=== PATIENT | female | born 1955 | race Caucasian/White ===

== ENCOUNTER 2017-01-12 13:26 | Inpatient (IN) | payer BC ==
[~2017-01-12] VITALS: Ht 157.5 cm; Wt 93.1 kg
[~2017-01-12 13:26] MED LIST: ALENDRONATE SOD70 MG PO; ATARAX,VISTARIL25 MG PO; BENAZEPRIL HCL20 MG PO; BENAZEPRIL HCL40 MG PO; CLOPIDOGREL75 MG PO; EPIPEN ADU0.3 MG/0.3 IM; FOSAMAX70 MG PO; HYDROXYCHLOROQ200 MG PO; LEVETIRACETAM250 MG PO; Lipitor PO; PLAQUENIL200 MG PO; PREDNISONE10 MG PO
[2017-01-12] MEDS ORDERED: VITAMIN D35000 UNIT PO (15:52)
[2017-01-12] MEDS ORDERED: VITAMIN E400 UNIT PO (15:52)
[2017-01-12] MEDS ORDERED: VITAMIN C500 M1 PO (15:52)
[2017-01-12] MEDS ORDERED: DAILY VALUE1 EACH PO (15:53)
[2017-01-12] MEDS ORDERED: GARLIC1000 MG PO (15:53)
[2017-01-12] MEDS ORDERED: OMEGA 3-6-9 CO1 EACH PO (15:54)
[2017-01-12] MEDS ORDERED: TUMS500 MG PO (15:55)
[2017-01-12] MEDS ORDERED: BENADRYL25 MG PO (15:56)
[2017-01-12] MEDS ORDERED: MOTRIN400 MG PO (15:56)
[2017-01-12] MEDS ORDERED: LO-DOSE ASPIRIN81 M2 PO (15:57)
[2017-01-12] MEDS ORDERED: NORVASC5 MG PO (15:57)
[2017-01-12] MEDS ORDERED: FLONASE16 G1 BOTH NARES (15:57)
[2017-01-12 16:53] VITALS: BP 170/80
[2017-01-12 17:33] LABS: TROP-I INTERPRETATION NEGATIVE
[2017-01-12 20:00] VITALS: BP 143/69
[2017-01-12 23:42] VITALS: BP 163/80
[2017-01-12 23:48] LABS: TROP-I INTERPRETATION POSITIVE; TROPONIN-I 0.64 ng/mL (0.0-0.30)
[2017-01-13 00:59] LABS: INTER. NORMALIZED RATIO 1.1; PROTHROMBIN TIME 10.7 (9.2-11.2); PTT 26.8 (25-32)
[2017-01-13 04:06] VITALS: BP 156/71
[2017-01-13 05:27] LABS: TROP-I INTERPRETATION POSITIVE; TROPONIN-I 0.79 ng/mL (0.0-0.30)
[2017-01-13 05:46] LABS: HDL CHOLESTEROL 52 MG/DL (Desirable>=50); LDL CHOLESTEROL 70 mg/dL (Desirable<100); NON-HDL CHOLESTEROL 83 mg/dL (Desirable<160); TOTAL CHOLESTEROL 135 mg/dL (Desirable<200); TRIGLYCERIDES 64 MG/DL (Normal: <150)
[2017-01-13 07:18] LABS: Estimated Average Glucose 103 mg/dL (70-123); HEMOGLOBIN A1c (GLYCOHEMOGLOB) 5.2 % HGB (Below 5.7)
[2017-01-13 08:00] LABS: BASOPHIL COUNT 0.1 K/uL (0-0.1); EOSINOPHIL (%) 3.3 % (0-5); EOSINOPHIL COUNT 0.3 K/uL (0-0.3); HEMATOCRIT 35.8 % (36.0-46.0); IMMATURE GRANULOCYTE (%) 0.5 % (0.0-0.7); INSTRUMENT ABS NEUTROPHIL CT 4.6 K/uL; LYMPHOCYTE COUNT 2.9 K/uL (1.0-2.8); MCH 27.4 PG (29.0-34.0); MCHC 32.1 G/DL (30.0-36.0); MCV 85.2 FL (83-99); MEAN PLAT.VOLUME 10.6 uM^3 (9.5-12.4); MONOCYTE (%) 8.4 % (3-12); MONOCYTE COUNT 0.7 K/uL (0-0.8); NEUTROPHIL (%) 53.9 % (45-76); NEUTROPHIL COUNT 4.6 K/uL (1.8-6.4); PLATELET COUNT 271 K/uL (156-360); RBC DIS.WIDTH-CV 13.6 % (11.8-14.6); RBC DIS.WIDTH-SD 42.3 % (39-53); WHITE BLOOD COUNT 8.6 K/uL (4.1-10.2)
[2017-01-13 08:18] VITALS: BP 158/80
[2017-01-13 09:00] LABS: ANION GAP 13 MEQ/L (2-14); CHLORIDE 102 MEQ/L (99-109); GFR ESTIMATE (CALCULATED) > 59 mL/min/; GLUCOSE 80 mg/dL (70-99); POTASSIUM 3.7 MEQ/L (3.7-5.4); SAMPLE HEMOLYSIS CHECK 0; SAMPLE ICTERIC CHECK 0; SAMPLE LIPEMIA CHECK 0; SODIUM 137 MEQ/L (136-147); UREA NITROGEN (BUN) 15 mg/dL (9-23)
[2017-01-13 11:27] LABS: TROP-I INTERPRETATION INDETERMINATE; TROPONIN-I 0.48 ng/mL (0.0-0.30)
[2017-01-13 12:29] VITALS: BP 164/78
[2017-01-13 15:46] VITALS: BP 142/77
[2017-01-13 17:43] LABS: TROP-I INTERPRETATION INDETERMINATE; TROPONIN-I 0.34 ng/mL (0.0-0.30)
[2017-01-13 19:00] VITALS: BP 136/74
[2017-01-13 23:45] VITALS: BP 151/72
[2017-01-14 00:50] LABS: INTER. NORMALIZED RATIO 1.1; PROTHROMBIN TIME 10.7 (9.2-11.2)
[2017-01-14 04:28] VITALS: BP 138/67
[2017-01-14 07:00] VITALS: BP 152/67
[2017-01-14 07:09] LABS: HEMATOCRIT 36.2 % (36.0-46.0); MCH 26.9 PG (29.0-34.0); MCHC 31.8 G/DL (30.0-36.0); MCV 84.8 FL (83-99); MEAN PLAT.VOLUME 10.2 uM^3 (9.5-12.4); PLATELET COUNT 274 K/uL (156-360); RBC DIS.WIDTH-CV 13.5 % (11.8-14.6); RBC DIS.WIDTH-SD 41.9 % (39-53); RED BLOOD COUNT 4.27 M/uL (3.80-5.20); WHITE BLOOD COUNT 9.8 K/uL (4.1-10.2)
[2017-01-14 12:47] VITALS: BP 138/65
[2017-01-14 16:36] VITALS: BP 136/65
[2017-01-14 20:49] VITALS: BP 149/75
[2017-01-15 00:12] VITALS: BP 130/75
[2017-01-15 04:56] VITALS: BP 128/61
[2017-01-15 06:55] LABS: HEMATOCRIT 36.7 % (36.0-46.0); MCH 26.9 PG (29.0-34.0); MCHC 31.3 G/DL (30.0-36.0); MCV 85.7 FL (83-99); MEAN PLAT.VOLUME 10.5 uM^3 (9.5-12.4); PLATELET COUNT 250 K/uL (156-360); RBC DIS.WIDTH-CV 13.6 % (11.8-14.6); RBC DIS.WIDTH-SD 42.4 % (39-53); RED BLOOD COUNT 4.28 M/uL (3.80-5.20); WHITE BLOOD COUNT 8.7 K/uL (4.1-10.2)
[2017-01-15 07:22] LABS: ANION GAP 10 MEQ/L (2-14); CHLORIDE 103 MEQ/L (99-109); GFR ESTIMATE (CALCULATED) > 59 mL/min/; GLUCOSE 76 mg/dL (70-99); SAMPLE HEMOLYSIS CHECK 0; SAMPLE ICTERIC CHECK 0; SAMPLE LIPEMIA CHECK 0; SODIUM 140 MEQ/L (136-147); UREA NITROGEN (BUN) 18 mg/dL (9-23)
[2017-01-15 07:30] VITALS: BP 136/60
[2017-01-15] MEDS ORDERED: ATORVASTATIN CA40 MG PO (09:02)
[2017-01-15] MEDS ORDERED: OFLOXACIN10 M1 LEFT EYE (09:02)
[2017-01-15] MEDS ORDERED: COMBIGAN O20 DROP/5 LEFT EYE (09:02)
[2017-01-15] MEDS ORDERED: LOPRESSOR25 MG PO (09:02)
[2017-01-15 09:17] VITALS: BP 136/60
[2017-01-15 12:00] VITALS: BP 129/65
== END 2017-01-15 13:20 | disposition home or self-care (01) | DRG 116 ==
LOC: EME → EDBD 13:26 → EME 13:26 → EDOF 14:20 → 4EAST 14:20 → EDOF 14:32 → 5SOUTH 16:42 → 4EAST 01-13 12:13
PROVIDERS: Hospitalist; Internal Medicine; Nurse Practitioner Adult Health
PROC: 08933ZZ Drainage of Left Anterior Chamber, Percutaneous Approach (ICD-10-PCS; principal; 2017-01-12)
DX: H34.12 Central retinal artery occlusion, left eye (principal); I21.4 Non-ST elevation (NSTEMI) myocardial infarction; I10 Essential (primary) hypertension; M32.9 Systemic lupus erythematosus, unspecified; I25.10 Atherosclerotic heart disease of native coronary artery without angina pectoris; H35.363 Drusen (degenerative) of macula, bilateral; E66.9 Obesity, unspecified; Z86.73 Personal history of transient ischemic attack (TIA), and cerebral infarction without residual deficits; Z87.891 Personal history of nicotine dependence; Z79.82 Long term (current) use of aspirin; Z79.02 Long term (current) use of antithrombotics/antiplatelets; Z91.040 Latex allergy status; Z68.37 Body mass index [BMI] 37.0-37.9, adult
CPT/HCPCS: 70543; 78452; 80048; 80061; 83036; 84443; 84484; 85025; 85027; 85610; 85651; 85730; 86140; 93005; 93017; 93306; 93880; 99281; 99284; A9500; J1644; J2405; J2785; J7512